=== PATIENT | female | born 1975 | race Caucasian/White ===

== ENCOUNTER → 2017-06-04 | Day surgery (SDC) | payer OTHER ==
--- NOTE | 2017-06-04 06:44 | History & Physical Pre-Op ---
General Information and HPI History of Present Illness: Landy is a 42-year-old female with a long-standing and worsening complaint of a painful bunion left foot. The patient has undergone an extended course of conservative care, including shoe gear and activity modification, rest, immobilization and courses of NSAIDs. None of this is yielded her any significant relief. The patient presents today for preoperative surgical consultation. Allergies/Medications Allergies: Uncoded Allergies: Allergy Other N Med Allergies CODIENE, SULFA, AMOXACILLIN Past History Medical History Endocrine: hypothyroidism Surgical History Pertinent Surgical History: none (Bunionectomy) Review of Systems Review of Systems: Unremarkable except for that noted in history of present illness Exam & Diagnostic Data Physical Exam: Lungs clear bilaterally. Heart sounds rate and rhythm regular. Lower extremity physical exam demonstrates intact pedal pulses bilaterally. Pulses dorsalis pedis and posterior tibial arteries are palpable bilaterally. Patient without any sensory motor deficits. Deep tendon reflexes grossly intact. Patient noted to have significant pain with palpation range of motion through the left first metatarsophalangeal joint. The hallux is noted to be tracking in track bound. No crepitus identified with range of motion. First ray excursion within normal limits. Assessment/Plan Assessment/Plan: Painful bunion left foot. A lengthy discussion reviewing both surgical and conservative options was held the patient at bedside and the patient elected to go forward with surgery despite the risks. As Ranked By This Provider Problem List: 1. Acquired hallux valgus of left foot Attending MD Review Statement Attending Statement Attending MD Statement: examined this patient
--- NOTE | 2017-06-04 14:27 | Operative Report ---
Operative/Inv Procedure Report Surgery Date: 06/04/17 Name of Procedure: 1 bunionectomy left foot 2 intraoperative application of Ramos compressive dressing and nonweightbearing posterior splint 3 intraoperative administration of ankle block anesthesia Pre-Operative Diagnosis: 1 hallux valgus left foot Post-Operative Diagnosis: The same Estimated Blood Loss: scant Surgeon/Mix Maker: Nino Mcmullen DPM, DPM Anesthesia: moderate sedation, block Operative/Procedure Note Note: After obtaining informed consent the patient was brought to the operating room and placed on the operating table in the supine position. The patient isn't securely fastened to the operating table utilizing safety belt. After administration of IV sedation, 10 mL of 0.5% Marcaine plain was infiltrated about the patient's left ankle. A well-padded ankle tourniquet was placed about the patient's left lower extremity. 600 mg of clindamycin were delivered intravenously times one dose. Left foot and ankle then scrubbed prepped and draped in usual aseptic manner. Left lower extremity is elevated to examine to limb, which point the ankle tourniquet was inflated 250 mmHg. Attention directed dorsal aspect the left foot, where 6 cm curvilinear incision was made just medial to the course of the extensor listless longus tendon. Skin was as a 15 blade and deepened subtenons tissues. All vital neurovascular structures were identified protected. An inverted L capsulotomy was then performed exposing the medial eminence. This was then removed sagittal bone saw. Attention was then directed to the first interspace, where a lateral release was performed with resection of the fibular suspensory ligament and the oblique head of the abductor hallucis tendon. The extensor hallucis brevis tendon was identified and tenotomized. The dissection then continued proximally, where an obliquely oriented wedge osteotomy was performed to reduce the intermetatarsal angle. It was then fixated utilizing standard AO fixation techniques. Distally , a corrective osteotomy to reduce the PASA was performed and again fixated utilizing standard AO fixation techniques. The wound was then irrigated with copious Svensson normal sterile saline. The capture structures were reapproximated with 3-0 Vicryl and the subtenons tissues reapproximated 4-0 Vicryl. The skin edges were then reapproximated with 4-0 Monocryl and the incision was dressed with Steri-Strips Xeroform 4 x 4's Kerlix and Esau wrap. A Ramos compressive dressing posterior splint was then applied to the patient's left lower extremity. The patient was noted to tolerate both procedure and anesthesia well and the patient was transported from the operating room to recovery with vital signs stable best assess intact all digits left foot.
== END ==
LOC: STS 03:56
DX: M20.12 Hallux valgus (acquired), left foot (principal); E03.9 Hypothyroidism, unspecified
CPT/HCPCS: 81025; C1713; J0131; J1100; J1885; J2001; J2250; J2405